=== PATIENT | male | born 1955 | race Caucasian/White ===

== ENCOUNTER 2020-08-17 19:09 | Inpatient (IN) | payer OTHER ==
[~2020-08-17] VITALS: Ht 183 cm; Wt 155.7 kg
[~2020-08-17 19:09] MED LIST: DAYPRO600 M1 PO; VICODIN 500 MG-1 TAB PO
[2020-08-17 19:10] VITALS: BP 99/69
[2020-08-17 19:44] LABS: BASO % 0.5 % (0.0-1.0); EOS # 0.2 10*3/uL (0.0-0.4); EOS % 2.9 % (1.0-4.0); HEMATOCRIT 38.3 % (42.0-52.0); LYMPH # 0.6 10*3/uL (1.3-4.4); LYMPH % 7.5 % (27.0-41.0); MEAN CORPUSCULAR HGB 31.7 pg (27.0-31.0); MEAN CORPUSCULAR HGB CONC 30.8 g/dl (33.0-37.0); MEAN PLATELET VOLUME 11.2 fl (9.6-12.3); MONO # 0.8 10*3/uL (0.1-1.0); MONO % 10.6 % (3.0-9.0); NEUT # 5.9 10*3/uL (2.3-7.9); NEUT % 78.1 % (47.0-73.0); PLATELET COUNT AUTOMATED 208 10*3/uL (130-400); RED BLOOD COUNT 3.72 10*6/uL (4.50-5.90); RED CELL DISTRI WIDTH 17.9 % (0-14.5); WHITE BLOOD COUNT 7.6 10*3/uL (4.8-10.8)
[2020-08-17 20:00] VITALS: BP 110/61
[2020-08-17 20:00] LABS: ALBUMIN 2.2 gm/dl (3.1-4.5); CREATININE 1.87 mg/dL (0.70-1.30); POTASSIUM 5.2 mmol/L (3.5-5.1); TOTAL PROTEIN 7.4 gm/dL (6.4-8.2)
[2020-08-17 21:10] VITALS: BP 108/72
[2020-08-17 22:39] VITALS: BP 90/66
[2020-08-18] VITALS (7 sets, daily range): BP systolic 89–123; BP diastolic 58–75
[2020-08-18] MEDS ORDERED: CARVEDILOL6.25 MG PO (01:41)
[2020-08-18] MEDS ORDERED: ASPIRIN CHEWABL81 MG PO (01:41)
[2020-08-18] MEDS ORDERED: ZESTRIL10 MG PO (01:42)
[2020-08-18] MEDS ORDERED: LIPITOR40 MG PO (01:42)
[2020-08-18] MEDS ORDERED: POTASSIUM CHLO20 ME3 PO (01:43)
[2020-08-18] MEDS ORDERED: MELATONIN 10 M1 EACH PO (01:43)
[2020-08-18 02:36] LABS: BASO % 0.4 % (0.0-1.0); EOS # 0.2 10*3/uL (0.0-0.4); EOS % 2.4 % (1.0-4.0); HEMATOCRIT 40.3 % (42.0-52.0); LYMPH # 0.7 10*3/uL (1.3-4.4); LYMPH % 9.5 % (27.0-41.0); MEAN CELL VOLUME 102.5 fl (80.0-94.0); MEAN CORPUSCULAR HGB 31.6 pg (27.0-31.0); MEAN CORPUSCULAR HGB CONC 30.8 g/dl (33.0-37.0); MEAN PLATELET VOLUME 10.7 fl (9.6-12.3); MONO # 0.8 10*3/uL (0.1-1.0); MONO % 11.1 % (3.0-9.0); NEUT # 5.4 10*3/uL (2.3-7.9); NEUT % 76.3 % (47.0-73.0); PLATELET COUNT AUTOMATED 189 10*3/uL (130-400); RED BLOOD COUNT 3.93 10*6/uL (4.50-5.90)
[2020-08-18 02:47] LABS: ACT PARTIAL THROMBO TIME 30.5 SECONDS (20.0-32.1); INTERNATIONAL NORM RATIO 1.4 (2.0-3.5)
[2020-08-18 02:52] LABS: ALBUMIN 2.3 gm/dl (3.1-4.5); CREATININE 1.9 mg/dL (0.70-1.30); POTASSIUM 5.8 mmol/L (3.5-5.1); TOTAL PROTEIN 7.6 gm/dL (6.4-8.2)
[2020-08-18 02:53] LABS: FREE T4 0.96 ng/dl (0.76-1.46)
[2020-08-18 02:58] LABS: THYROID STIM HORMONE (HS) 2.39 uIU/ml (0.358-4.75)
[2020-08-18 07:28] LABS: CREATININE 1.64 mg/dL (0.70-1.30); POTASSIUM 5.1 mmol/L (3.5-5.1)
[2020-08-18 09:40] LABS: ACT PARTIAL THROMBO TIME 51.7 SECONDS (20.0-32.1); INTERNATIONAL NORM RATIO 1.3 (2.0-3.5)
[2020-08-18 11:47] LABS: BILIRUBIN Negative (Negative); BLOOD Trace-Intact (Negative); CLARITY Cloudy (Clear); COLOR Dark Yellow (Yellow); GLUCOSE Negative (Negative); KETONE Negative (Negative); LEUKO ESTERASE Trace (Negative); NITRITE Negative (Negative)
[2020-08-18 11:59] LABS: BACTERIA 1+; EPITHELIAL CELLS 0-2; RBC 0-2 rbc/hpf (0-2)
[2020-08-19] VITALS (11 sets, daily range): BP systolic 80–113; BP diastolic 40–80
[2020-08-19 05:18] LABS: CREATININE 1.97 mg/dL (0.70-1.30)
[2020-08-19 06:17] LABS: BASO % 0.5 % (0.0-1.0); EOS # 0.3 10*3/uL (0.0-0.4); EOS % 4.6 % (1.0-4.0); HEMATOCRIT 38.7 % (42.0-52.0); LYMPH # 0.8 10*3/uL (1.3-4.4); LYMPH % 13.5 % (27.0-41.0); MEAN CORPUSCULAR HGB CONC 30.7 g/dl (33.0-37.0); MEAN PLATELET VOLUME 11.6 fl (9.6-12.3); MONO # 0.7 10*3/uL (0.1-1.0); MONO % 11.4 % (3.0-9.0); NEUT # 4.2 10*3/uL (2.3-7.9); NEUT % 69.7 % (47.0-73.0); PLATELET COUNT AUTOMATED 163 10*3/uL (130-400); RED BLOOD COUNT 3.72 10*6/uL (4.50-5.90); WHITE BLOOD COUNT 6.1 10*3/uL (4.8-10.8)
[2020-08-20] VITALS: BP 101/46
[2020-08-20 06:25] LABS: BASO % 0.5 % (0.0-1.0); EOS # 0.3 10*3/uL (0.0-0.4); EOS % 3.3 % (1.0-4.0); HEMATOCRIT 42.5 % (42.0-52.0); LYMPH # 0.7 10*3/uL (1.3-4.4); LYMPH % 9.3 % (27.0-41.0); MEAN CELL VOLUME 105.7 fl (80.0-94.0); MEAN CORPUSCULAR HGB 32.1 pg (27.0-31.0); MEAN CORPUSCULAR HGB CONC 30.4 g/dl (33.0-37.0); MEAN PLATELET VOLUME 11.3 fl (9.6-12.3); MONO % 13.8 % (3.0-9.0); NEUT # 5.5 10*3/uL (2.3-7.9); NEUT % 72.7 % (47.0-73.0); PLATELET COUNT AUTOMATED 194 10*3/uL (130-400); RED BLOOD COUNT 4.02 10*6/uL (4.50-5.90); RED CELL DISTRI WIDTH 17.5 % (0-14.5); WHITE BLOOD COUNT 7.6 10*3/uL (4.8-10.8)
[2020-08-20 07:07] LABS: CREATININE 2.31 mg/dL (0.70-1.30); POTASSIUM 4.6 mmol/L (3.5-5.1)
[2020-08-20 12:00] VITALS: BP 183/44
[2020-08-20 16:00] VITALS: BP 108/69
[2020-08-20 20:00] VITALS: BP 93/58
[2020-08-21] VITALS: BP 100/63
[2020-08-21 05:55] LABS: CREATININE 2.21 mg/dL (0.70-1.30); POTASSIUM 4.1 mmol/L (3.5-5.1)
[2020-08-21 05:58] LABS: BASO % 0.4 % (0.0-1.0); EOS # 0.2 10*3/uL (0.0-0.4); HEMATOCRIT 39.4 % (42.0-52.0); LYMPH # 0.7 10*3/uL (1.3-4.4); MEAN CELL VOLUME 104.5 fl (80.0-94.0); MEAN CORPUSCULAR HGB 31.6 pg (27.0-31.0); MEAN CORPUSCULAR HGB CONC 30.2 g/dl (33.0-37.0); MEAN PLATELET VOLUME 11.3 fl (9.6-12.3); NEUT # 4.8 10*3/uL (2.3-7.9); NEUT % 71.2 % (47.0-73.0); PLATELET COUNT AUTOMATED 163 10*3/uL (130-400); RED BLOOD COUNT 3.77 10*6/uL (4.50-5.90); RED CELL DISTRI WIDTH 17.3 % (0-14.5); WHITE BLOOD COUNT 6.7 10*3/uL (4.8-10.8)
[2020-08-21 08:00] VITALS: BP 102/67
[2020-08-21 12:00] VITALS: BP 105/68
[2020-08-21 16:04] VITALS: BP 115/76
[2020-08-21 20:00] VITALS: BP 105/66
[2020-08-22] VITALS: BP 96/65
[2020-08-22 06:00] LABS: BASO % 0.3 % (0.0-1.0); EOS # 0.2 10*3/uL (0.0-0.4); EOS % 2.6 % (1.0-4.0); HEMATOCRIT 37.1 % (42.0-52.0); LYMPH # 0.5 10*3/uL (1.3-4.4); LYMPH % 7.8 % (27.0-41.0); MEAN CELL VOLUME 101.9 fl (80.0-94.0); MEAN CORPUSCULAR HGB 31.9 pg (27.0-31.0); MEAN CORPUSCULAR HGB CONC 31.3 g/dl (33.0-37.0); MEAN PLATELET VOLUME 11.1 fl (9.6-12.3); MONO # 0.9 10*3/uL (0.1-1.0); MONO % 14.2 % (3.0-9.0); NEUT # 4.6 10*3/uL (2.3-7.9); NEUT % 74.3 % (47.0-73.0); PLATELET COUNT AUTOMATED 136 10*3/uL (130-400); RED BLOOD COUNT 3.64 10*6/uL (4.50-5.90); RED CELL DISTRI WIDTH 16.8 % (0-14.5); WHITE BLOOD COUNT 6.1 10*3/uL (4.8-10.8)
[2020-08-22 06:12] LABS: CREATININE 2.5 mg/dL (0.70-1.30); POTASSIUM 3.7 mmol/L (3.5-5.1)
[2020-08-22 08:00] VITALS: BP 96/60
[2020-08-22 12:00] VITALS: BP 84/55
[2020-08-22 16:00] VITALS: BP 142/113
[2020-08-22 20:00] VITALS: BP 98/54
[2020-08-23] VITALS: BP 103/68
[2020-08-23 06:18] LABS: BASO % 0.5 % (0.0-1.0); EOS # 0.1 10*3/uL (0.0-0.4); EOS % 2.3 % (1.0-4.0); HEMATOCRIT 40.4 % (42.0-52.0); LYMPH # 0.4 10*3/uL (1.3-4.4); LYMPH % 6.9 % (27.0-41.0); MEAN CELL VOLUME 102.8 fl (80.0-94.0); MEAN CORPUSCULAR HGB 31.6 pg (27.0-31.0); MEAN CORPUSCULAR HGB CONC 30.7 g/dl (33.0-37.0); MEAN PLATELET VOLUME 11.2 fl (9.6-12.3); MONO # 0.9 10*3/uL (0.1-1.0); MONO % 14.4 % (3.0-9.0); NEUT # 4.6 10*3/uL (2.3-7.9); NEUT % 74.9 % (47.0-73.0); PLATELET COUNT AUTOMATED 140 10*3/uL (130-400); RED BLOOD COUNT 3.93 10*6/uL (4.50-5.90); RED CELL DISTRI WIDTH 16.7 % (0-14.5); WHITE BLOOD COUNT 6.1 10*3/uL (4.8-10.8)
[2020-08-23 06:47] LABS: CREATININE 2.82 mg/dL (0.70-1.30); POTASSIUM 3.4 mmol/L (3.5-5.1)
[2020-08-23 08:00] VITALS: BP 119/71
[2020-08-23 12:00] VITALS: BP 120/68
[2020-08-23 16:19] VITALS: BP 96/57
[2020-08-23 20:00] VITALS: BP 95/55
[2020-08-24] VITALS: BP 91/55
[2020-08-24 07:00] LABS: ALBUMIN 2.3 gm/dl (3.1-4.5); CREATININE 3.03 mg/dL (0.70-1.30); POTASSIUM 3.2 mmol/L (3.5-5.1); TOTAL PROTEIN 7.2 gm/dL (6.4-8.2)
[2020-08-24 08:29] VITALS: BP 100/50
[2020-08-24 11:50] VITALS: BP 114/69
[2020-08-24 16:00] VITALS: BP 122/70
[2020-08-24 16:08] VITALS: BP 104/62
[2020-08-24] MEDS ORDERED: MIDODRINE HCL5 M1 PO (17:01)
== END 2020-08-24 20:02 | disposition short-term general hospital (02) | DRG 194 ==
LOC: ED 19:09 → 4E 23:53 → EDHOLD 23:53 → 4E 08-18 00:52
PROVIDERS: Family Medicine; Internal Medicine; Student in an Organized Health Care Education/Training Program; ADMIT Internal Medicine; ATTEND Internal Medicine
PROC: 0HBRXZZ Excision of Toe Nail, External Approach (ICD-10-PCS; principal; 2020-08-20)
PROC: 0HBRXZZ Excision of Toe Nail, External Approach (ICD-10-PCS; 2020-08-20)
PROC: 0HBRXZZ Excision of Toe Nail, External Approach (ICD-10-PCS; 2020-08-20)
PROC: 0HBRXZZ Excision of Toe Nail, External Approach (ICD-10-PCS; 2020-08-20)
PROC: 0HBRXZZ Excision of Toe Nail, External Approach (ICD-10-PCS; 2020-08-20)
PROC: 0HBRXZZ Excision of Toe Nail, External Approach (ICD-10-PCS; 2020-08-20)
PROC: 0HBRXZZ Excision of Toe Nail, External Approach (ICD-10-PCS; 2020-08-20)
PROC: 0HBRXZZ Excision of Toe Nail, External Approach (ICD-10-PCS; 2020-08-20)
PROC: 0HBRXZZ Excision of Toe Nail, External Approach (ICD-10-PCS; 2020-08-20)
PROC: 0HBRXZZ Excision of Toe Nail, External Approach (ICD-10-PCS; 2020-08-20)
DX: I13.2 Hypertensive heart and chronic kidney disease with heart failure and with stage 5 chronic kidney disease, or end stage renal disease (principal); N17.0 Acute kidney failure with tubular necrosis; E87.2 Acidosis; E43 Unspecified severe protein-calorie malnutrition; E66.01 Morbid (severe) obesity due to excess calories; L89.151 Pressure ulcer of sacral region, stage 1; D53.9 Nutritional anemia, unspecified; E87.5 Hyperkalemia; R79.82 Elevated C-reactive protein (CRP); E87.8 Other disorders of electrolyte and fluid balance, not elsewhere classified; E83.41 Hypermagnesemia; E80.6 Other disorders of bilirubin metabolism; L97.921 Non-pressure chronic ulcer of unspecified part of left lower leg limited to breakdown of skin; L97.911 Non-pressure chronic ulcer of unspecified part of right lower leg limited to breakdown of skin; E11.65 Type 2 diabetes mellitus with hyperglycemia; N18.6 End stage renal disease; N39.0 Urinary tract infection, site not specified; Z20.822 Contact with and (suspected) exposure to COVID-19; I87.2 Venous insufficiency (chronic) (peripheral); B96.4 Proteus (mirabilis) (morganii) as the cause of diseases classified elsewhere; L85.3 Xerosis cutis; R79.89 Other specified abnormal findings of blood chemistry; B35.1 Tinea unguium; E11.22 Type 2 diabetes mellitus with diabetic chronic kidney disease; Z86.73 Personal history of transient ischemic attack (TIA), and cerebral infarction without residual deficits; Z82.49 Family history of ischemic heart disease and other diseases of the circulatory system; Z79.899 Other long term (current) drug therapy; Z79.82 Long term (current) use of aspirin; Z68.35 Body mass index [BMI] 35.0-35.9, adult; I50.33 Acute on chronic diastolic (congestive) heart failure